=== PATIENT | female | born 1990 | race Caucasian/White ===

== ENCOUNTER 2021-05-09 14:09 | Inpatient (IN) | payer OTHER ==
[~2021-05-09 14:09] MED LIST: ACETAMINOPHEN500 M1 PO; COLACE100 MG PO; EXPECTA PRENAT1 EACH PO; FEOSOL325 MG PO; MOTRIN600 MG PO
[2021-05-09 16:00] LABS: BILIRUBIN NEGATIVE (NEGATIVE); BLOOD NEGATIVE Ery/uL (NEGATIVE); CLARITY CLEAR (CLEAR); COLOR YELLOW (YELLOW); GLUCOSE (U) NORMAL (NORMAL); LEUKOCYTES NEGATIVE Leu/uL (NEGATIVE); NITRITE NEGATIVE (NEGATIVE); PROTEIN TRACE (LOW) mg/dL (NEGATIVE); SPECIFIC GRAVITY 1.015 (1.001-1.030); UROBILINOGEN 0.2 mg/dL (0.2-1.0); pH 7.5 (5.0-9.0)
[2021-05-09 16:15] LABS: HCT 31.8 % (37.0-47.0); HGB 10.2 g/dl (12.5-16.0); MCH 28.8 pg (25.0-31.0); MCHC 32.1 g/dL (32.0-36.0); MCV 89.8 fL (78.0-100.0); MPV 10.1 fL (6.0-9.5); RBC 3.54 M/uL (4.20-5.40); RDW 12.8 % (11.5-14.0); WBC 9.7 K/uL (4.0-10.5)
[2021-05-09 16:20] LABS: BACTERIA 1+
[2021-05-11 04:15] LABS: HCT 28.1 % (37.0-47.0); HGB 8.7 g/dl (12.5-16.0); MCH 28.9 pg (25.0-31.0); MCV 93.4 fL (78.0-100.0); RBC 3.01 M/uL (4.20-5.40); RDW 13.2 % (11.5-14.0); WBC 13.9 K/uL (4.0-10.5)
== END 2021-05-11 14:56 | disposition home or self-care (01) | DRG 805 ==
LOC: FOD 14:09 → FOB 14:10 → FOD 15:29 → FOB 15:30
PROVIDERS: ADMIT Obstetrics & Gynecology
PROC: 10H07YZ Insertion of Other Device into Products of Conception, Via Natural or Artificial Opening (ICD-10-PCS; 2021-05-09)
PROC: 10E0XZZ Delivery of Products of Conception, External Approach (ICD-10-PCS; principal; 2021-05-10)
PROC: 0KQM0ZZ Repair Perineum Muscle, Open Approach (ICD-10-PCS; 2021-05-10)
DX: O60.23X0 Term delivery with preterm labor, third trimester, not applicable or unspecified (principal); O45.93 Premature separation of placenta, unspecified, third trimester; Z37.0 Single live birth; D62 Acute posthemorrhagic anemia; O99.02 Anemia complicating childbirth; Z3A.36 36 weeks gestation of pregnancy; O99.344 Other mental disorders complicating childbirth; F41.9 Anxiety disorder, unspecified; O69.81X0 Labor and delivery complicated by cord around neck, without compression, not applicable or unspecified; O70.1 Second degree perineal laceration during delivery
CPT/HCPCS: 36415; 81001; 84112; 86850; 86900; 86901; J0702; J2540; J2795; J2916; J3105; J7120; U0002